=== PATIENT | male | born 1955 | race Caucasian/White ===

== ENCOUNTER → 2020-10-12 | Outpatient (CLI) | payer MEDICARE, BC ==
--- NOTE | 2020-10-12 18:52 | RAD ---
EXAM: CT Cervical Spine without IV contrast INDICATION: Reason: / Spl. Instructions: CERVICAL PAIN, NECK / History: TECHNIQUE: Multi-detector row CT images were obtained through the cervical spine without the use of IV contrast. Post-processing sagittal and coronal reconstructed images were obtained for interpretati on. All CT scans performed at this facility utilize dose optimization techniques as appropriate to e exam, including the following: Automated exposure control and adjustment of the mA and/or KV accord ing to patient size (this includes techniques or standardized protocols for targeted exams where dose is indication/reason for exam). COMPARISON: None FINDINGS: CRANIOCERVICAL JUNCTION: Unremarkable. ALIGNMENT: Mild reversal normal cervical lordosis apex at C4-C5. No listhesis OSSEOUS: No evidence of fracture or bone destruction. DISC SPACES: Disc space narrowing at C4-C5 is present. To a lesser extent, similar findings are pres ent at C5-C6. Disc protrusion is also evident at C6-C7 on the left. FACET JOINTS: Bulky facet hypertrophy at C3-C4 is present on the right. No facet fractures or jumped facets are evident. SPINAL CANAL: Multilevel right-sided foraminal stenosis due to combination of facet hypertrophy and facet hypertrophy. Central canal. Patent. The greatest degree of central canal stenosis is at C4-C5 w here central canal narrowing to10 mm AP is seen. NEUROFORAMINA: Moderate right C3-C4 and C4-C5 foraminal stenosis and left C4-C5 stenosis. SOFT TISSUES: Unremarkable. IMPRESSION: Multilevel cervical spinal degenerative spondylosis as described resulting in degrees of central myron l or foraminal stenosis. If warranted, more detailed evaluation could be pursued with CT cervical mye lography or MRI. EXAM: CT Thoracic Spine without IV contrast INDICATION: Reason: / Spl. Instructions: CERVICAL PAIN, NECK / History: TECHNIQUE: Multi-detector row CT images were obtained through the thoracic spine without the use of IV contrast. Post-processing sagittal and coronal reconstructed images were obtained for interpretati on. All CT scans performed at this facility utilize dose optimization techniques as appropriate to e exam, including the following: Automated exposure control and adjustment of the mA and/or KV accord ing to patient size (this includes techniques or standardized protocols for targeted exams where dose is indication/reason for exam). COMPARISON: CT C-spine same FINDINGS: ALIGNMENT: Alignment is within normal limits. OSSEOUS: No evidence of fracture or bone destruction. DISC SPACES: Minimal disc space narrowing most conspicuous at T9-T10 is present where associated min imal endplate ossific spurring FACET JOINTS: Unremarkable. SPINAL CANAL: Unremarkable. NEUROFORAMINA: Unremarkable. SOFT TISSUES: Unremarkable. IMPRESSION: Minimal degenerative changes in the thoracic spine without malalignment, fracture or evidence of thor acic spinal stenosis . Electronically signed by: Russel Bateman MD (10/12/2020 6:49 PM) [id number]
== END ==
LOC: CT 12:57
PROVIDERS: ATTEND Chiropractor
DX: M47.22 Other spondylosis with radiculopathy, cervical region (principal); M50.123 Cervical disc disorder at C6-C7 level with radiculopathy; M48.03 Spinal stenosis, cervicothoracic region; M47.814 Spondylosis without myelopathy or radiculopathy, thoracic region; M89.38 Hypertrophy of bone, other site; M62.838 Other muscle spasm
CPT/HCPCS: 72125; 72128

== ENCOUNTER → 2020-11-08 | Outpatient (CLI) | payer MEDICARE, BC ==
--- NOTE | 2020-11-09 08:12 | KCIC ---
ADDENDUM #1 Addendum: 3 views of the right shoulder are also obtained. There is no fracture, dislocation or sublu xation. No radiodense foreign body is seen. Electronically signed by: Urvashi Echevarria MD (11/09/2020 8:25 AM) [id number] ORIGINAL REPORT EXAM: Left shoulder, 3 views. HISTORY: Foreign body. COMPARISON: None. FINDINGS: 3 views of the left shoulder obtained. There is no fracture, dislocation or subluxation. No radiodense foreign body is seen. There is suspected left basilar atelectasis. IMPRESSION: No acute osseous finding or radiodense foreign body. Electronically signed by: Urvashi Echevarria MD (11/08/2020 1:47 PM) [id number]
== END ==
LOC: KCIC 15:43
PROVIDERS: ATTEND Physician Assistant Medical
DX: Z18.9 Retained foreign body fragments, unspecified material (principal)

== ENCOUNTER → 2020-12-07 | Outpatient (CLI) | payer MEDICARE, BC ==
[~2020-12-07] MED LIST: DICL75TA PO; DOXY100C2 PO; GABA300C18 PO; HYDR-2761 PO; METF500T16 PO; OXYC1TAB15 PO; SIMV80TA17 PO; TERB250T84 PO
== END ==
LOC: LAB 11:02
PROVIDERS: ATTEND Surgery
DX: Z01.812 Encounter for preprocedural laboratory examination (principal); Z20.822 Contact with and (suspected) exposure to COVID-19; M79.5 Residual foreign body in soft tissue
CPT/HCPCS: U0003

== ENCOUNTER 2020-12-10 09:31 | Day surgery (SDC) | payer MEDICARE, BC ==
[~2020-12-10] VITALS: Ht 172.7 cm; Wt 77.1 kg
[~2020-12-10 09:31] MED LIST changes: -DICL75TA PO; -DOXY100C2 PO; -GABA300C18 PO; -HYDR-2761 PO; +HYDROmorphone 2 MG/ML VIAL IVP PRN; -METF500T16 PO; +MORPHINE SULFATE 2 MG/ML VIAL. IVP PRN; -OXYC1TAB15 PO; +PROCHLORPERAZINE 10 MG/2 ML VIAL. IVP PRN; -SIMV80TA17 PO; -TERB250T84 PO; +fentaNYL PF VIAL 100 MCG/2 ML VIAL IVP PRN
[2020-12-10] MEDS ORDERED: GABA300C18 PO (10:03)
[2020-12-10] MEDS ORDERED: DICL75TA PO (10:03)
[2020-12-10] MEDS ORDERED: DOXY100C2 PO (10:03)
[2020-12-10] MEDS ORDERED: OXYC1TAB15 PO (10:03)
[2020-12-10] MEDS ORDERED: TERB250T84 PO (10:05)
[2020-12-10] MEDS ORDERED: METF500T16 PO (10:05)
[2020-12-10] MEDS ORDERED: SIMV80TA17 PO (10:05)
[2020-12-10] MEDS: IV RINGERS,LACTATED 1000ML 1,000 ML IV SCH (10:12)
[2020-12-10] MEDS ORDERED: LIDOCAINE 1%/EPI 1:100,000 20 ML VIAL. ONE (10:14)
[2020-12-10] MEDS ORDERED: INSULIN LISPRO 100 UNIT/ML 3ML VIAL for OP,RR ONLY. SQ ONE (10:25)
[2020-12-10] MEDS: INSULIN LISPRO 100 UNIT/ML 3ML VIAL for OP,RR ONLY. SQ PRN (10:25)
[2020-12-10] MEDS ORDERED: KETOROLAC 30 MG/ML VIAL. ONE (10:34)
[2020-12-10] MEDS ORDERED: PROPOFOL 10 MG/ML (20ML) VIAL. IV ONE (10:34)
[2020-12-10] MEDS ORDERED: ONDANSETRON PF 4 MG/2 ML VIAL. ONE (10:34)
[2020-12-10] MEDS ORDERED: SEVOFLURANE 31 TO 60 MINUTES. IH ONE (10:34)
[2020-12-10] MEDS ORDERED: DEXAMETHASONE SOD PHOS 4 MG/ML VIAL ONE (10:34)
[2020-12-10] MEDS ORDERED: LIDOCAINE 2% PF 5 ML VIAL. ONE (10:34)
[2020-12-10] MEDS: BUPIVACAINE-EPI 0.5%-1:200000 MPF 30 ML VIAL. ONE (10:56)
[2020-12-10] MEDS ORDERED: ESMOLOL 100 MG/10 ML VIAL. IVP ONE (10:58)
[2020-12-10] MEDS ORDERED: fentaNYL PF VIAL 100 MCG/2 ML VIAL ONE (11:13)
[2020-12-10] MEDS ORDERED: HYDROcodone/APAP 5/325MG 1 TAB TABLET PO ONE (11:30)
--- NOTE | 2020-12-10 11:32 | PDOC4 ---
Operative Note Operative Note Operative Note: Preoperative Diagnosis: Right axillary foreign body Postoperative Diagnosis: Same Procedure: Removal of right axillary foreign body Surgeon: Óscar [employer] Technician: Dominic MAST Anesthesia: General EBL: 5 mL Specimen: Right axillary foreign body to pathology Drains: None Complications: None Indication: The patient is a 65-year-old male who has a longstanding history of a small metallic foreign body in the right axillary soft tissues. He requests removal of this metallic piece. The risks of surgery were discussed which include bleeding, infection, scar tissue, pain, risk of anesthesia, inability to find a foreign body. He understands and would like to proceed. Description: The patient was taken to the operating room and placed supine in the operating table. General anesthesia was performed. The right axilla was prepped with ChloraPrep and draped in a standard surgical manner. Intraoperative fluoroscopy with the C arm demonstrated the foreign body in the area of suspicion previously marked. A small incision was made in the skin with a scalpel. Combination of sharp and blunt dissection was used in subcutaneous tissues. An intraoperative magnet assisted in locating the specific location of the foreign body. With sharp dissection the piece of metal was identified and freed from the surrounding tissues. This dissection was carried down to and included the level of the latissimus muscle. The foreign body was then sent to pathology. Hemostasis was achieved with cautery. The subcutaneous tissue was closed with 3-0 Vicryl and skin approximated with 4-0 Monocryl. The incision was infiltrated with half percent Marcaine with epinephrine. Steri-Strips and a sterile dressing were applied. The patient tolerated the procedure well and was sent to the recovery room in stable condition. At the end of the case all counts were correct. ROGER REYES MD Dec 10, 2020 11:32
[2020-12-10] MEDS ORDERED: HYDR-2761 PO (11:46)
[2020-12-10 12:16] VITALS: BP 137/79
--- NOTE | 2020-12-13 17:07 | PATHOLOGY ---
[facility] Accession Number: [id number] . 01 Material submitted: . axillary tail of breast - FOREIGN BODY RIGHT AXILLARY. Modifiers: right . 01 Clinical history: . EXCISION OF FOREIGN BODY . 02 Diagnosis: Fibroadipose tissue, right axillary: - Foreign body, with associated dense sclerosis and numerous pigmented macrophages. (JPM/db; 12/13/2020) LBQ 12/13/2020 1612 Local . 02 Electronically signed: . Warner Rizzo MD, Pathologist NPI- [id number] . 01 Gross description: . The specimen is received in formalin, labeled "Agus Patton, foreign body". The site is designated on the requisition in the diagnosis as, "R axillary". Received is a segment of light brown indurated tissue measuring 1.2 x 0.8 x 0.4 cm in greatest dimensions. Sectioning through the tissue reveals a segment of black possible metal measuring 0.7 cm in greatest dimensions. The soft tissue is submitted entirely in cassette A1. Gross photographs are taken. The foreign body is retained within the container. ([facility]; 12/12/2020) QAC/QAC 12/12/2020 1114 Local . 02 Pathologist provided ICD-10: M79.9 . 02 CPT . 514645 Specimen Comment: A courtesy copy of this report has been sent to [phone] Specimen Comment: Report sent to Performed at: 01 [facility] [address], [place] [id number] MD Lev Franco MD Phone: [phone] Performed at: 02 [facility] [address] [place], [place] [id number] MD Warner Rizzo MD Phone: [phone]
== END 2020-12-10 12:25 | disposition home or self-care (01) ==
LOC: SURG 09:31
PROVIDERS: ATTEND Surgery
DX: M79.5 Residual foreign body in soft tissue (principal); E78.00 Pure hypercholesterolemia, unspecified; E11.9 Type 2 diabetes mellitus without complications; Z85.828 Personal history of other malignant neoplasm of skin; Z79.899 Other long term (current) drug therapy; Z79.84 Long term (current) use of oral hypoglycemic drugs; Z98.890 Other specified postprocedural states; Z88.0 Allergy status to penicillin; Z72.89 Other problems related to lifestyle
CPT/HCPCS: 10120; 82962; A4364; A4930; A6402; J0690; J1100; J1815; J1885; J2405; J2704; J3490; 76000; A4452; J3010

== ENCOUNTER → 2020-12-25 | Outpatient (CLI) | payer MEDICARE, BC ==
[2020-12-10 12:16] VITALS: BP 137/79
[~2020-12-25] MED LIST changes: +DICL75TA PO; +DOXY100C2 PO; +GABA300C18 PO; +HYDR-2761 PO; -HYDROmorphone 2 MG/ML VIAL IVP PRN; +METF500T16 PO; -MORPHINE SULFATE 2 MG/ML VIAL. IVP PRN; +OXYC1TAB15 PO; -PROCHLORPERAZINE 10 MG/2 ML VIAL. IVP PRN; +SIMV80TA17 PO; +TERB250T84 PO; -fentaNYL PF VIAL 100 MCG/2 ML VIAL IVP PRN
--- NOTE | 2020-12-25 17:06 | KCIC ---
MRI of the cervical spine without contrast 12/25/2020 CLINICAL HISTORY: Neck pain which radiates down the left shoulder. TECHNIQUE: Unenhanced T1-weighted, T2-weighted and inversion recovery sagittal and gradient echo and T2-weighted axial images of the cervical spine were obtained. FINDINGS: There is slight reversal the normal cervical lordosis. Degenerative signal changes are seen involving all the disks of the cervical spine. Loss of height of the C4-5 disc is noted. Hemangiomas are seen involving the C7 and T1 vertebral bodies which measure 1 to 1.5 cm in size. No area of abno rmal signal intensity is seen involving the cervical spinal cord. At the C2-3 disc space there is a minimal generalized disc bulge. Degenerative changes are seen invol ving the uncovertebral and facet joints bilaterally. These findings do not result in significant cent ral spinal canal or neural foraminal stenosis. At the C3-4 disc space there is a mild generalized disc bulge. Degenerative changes are seen involvin g the uncovertebral and facet joints, right greater than left. These findings do not result in signif icant central spinal canal stenosis. Mild to moderate right greater than left neural foraminal stenos is is seen. At the C4-5 disc space is a moderate generalized disc bulge. Degenerative changes are seen involving the uncovertebral and facet joints bilaterally. These findings do not result in significant central s kerri canal stenosis. Moderate to severe right greater than left neural foraminal stenosis is seen. At the C5-6 disc space is a mild to moderate generalized disc bulge. Superimposed on this disc bulge is a right paracentral focal disc protrusion. This measures 3 mm in AP diameter. Degenerative changes are seen involving the uncovertebral and facet joints, right greater than left. These findings when combined do not result in significant central spinal canal stenosis. Mild bilateral neural foraminal stenosis is seen. At the C6-7 disc space there is a mild generalized disc bulge. Superimposed on this disc bulge is a l eft paracentral focal disc herniation. This extrudes inferiorly. It measures 4 mm in AP diameter. Deg enerative changes are seen involving the uncovertebral and facet joints, left greater than right. The se findings when combined do not result in significant central spinal canal stenosis. Mild to moderat e left greater than right neural foraminal stenosis is seen. At the C7-T1 disc space there is a mild generalized disc bulge. Superimposed on this disc bulge is a left paracentral/lateral focal disc herniation. This measures 7 mm in AP diameter. Degenerative kim es are seen involving the facet joints bilaterally. These findings when combined result in severe lef t lateral central spinal canal stenosis and left neural foraminal stenosis. The right neural foramen is patent. IMPRESSION: Degenerative changes are seen throughout the cervical spine. These findings results in mi ld to moderate right greater than left neural foraminal stenosis at C3-4, moderate to severe right gr eater than left neural foraminal stenosis at C4-5, mild bilateral neural foraminal stenosis at C5-6 a nd mild to moderate left greater than right neural foraminal stenosis at C6-7. At the C7-T1 disc spac e a left paracentral/lateral focal disc herniation is seen. This results in severe left lateral centr al spinal canal stenosis and severe left neural foraminal stenosis. Electronically signed by: Chay Berman MD (12/25/2020 5:03 PM) [id number]
== END ==
LOC: KCIC MRI 14:19
DX: M47.813 Spondylosis without myelopathy or radiculopathy, cervicothoracic region (principal); M48.03 Spinal stenosis, cervicothoracic region
CPT/HCPCS: 72141